=== PATIENT | female | born 1945 | race Caucasian/White ===

== ENCOUNTER 2018-04-03 08:21 | Day surgery (SDC) | payer MEDICARE, OTHER ==
[~2018-04-03] VITALS: Ht 170.2 cm; Wt 76.0 kg
[2018-04-03] VITALS (13 sets, daily range): BP systolic 118–164; BP diastolic 60–94
[2018-04-03 09:18] LABS: BASOPHILS % (AUTO) 0.1 % (0-1); EOSINOPHILS # (AUTO) 1.4 X10'3 (0-0.9); EOSINOPHILS % (AUTO) 17.6 % (0-6); HEMOGLOBIN 11.8 g/dl (12.0-16.0); LYMPHOCYTES # (AUTO) 2.1 X10'3 (1.1-4.8); LYMPHOCYTES % (AUTO) 26.1 % (21-51); MEAN CORPUSCULAR HEMOGLOBIN 27.6 PG (27.0-31.0); MEAN CORPUSCULAR HGB CONC 33.7 % (33.0-36.5); MEAN CORPUSCULAR VOLUME 82.1 FL (78-98); MEAN PLATELET VOLUME 8.8 FL (7.4-10.4); MONOCYTES # (AUTO) 0.5 X10'3 (0-0.9); MONOCYTES % (AUTO) 6.5 % (2-12); NEUTROPHILS # (AUTO) 4.1 X10'3 (1.8-7.7); NEUTROPHILS % (AUTO) 49.7 % (42-75); PLATELET COUNT 222 X10'3 (140-440); RED BLOOD COUNT 4.26 X10'6 (4.20-5.60); RED CELL DISTRIBUTION WIDTH 14.8 % (11.5-14.5); WHITE BLOOD COUNT 8.2 X10'3 (4.5-11.0)
[2018-04-03 09:26] LABS: ALBUMIN 3.7 G/DL (3.4-5.0); ANION GAP 11 (8-16); BLOOD UREA NITROGEN 22 MG/DL (7-18); BUN/CREATININE RATIO 20.2 (6.6-38.0); CALCIUM 9.6 MG/DL (8.5-10.1); CHLORIDE 104 MMOL/L (99-107); CREATININE 1.09 MG/DL (0.40-0.90); GLUCOSE 122 MG/DL (70-104); POTASSIUM 3.8 MMOL/L (3.5-5.1); SODIUM 142 MMOL/L (135-145); TOTAL CARBON DIOXIDE 26.7 MMOL/L (24-32); eGFR 49 ML/MIN
[2018-04-03 09:34] LABS: PROTHROMBIN TIME 10.2 SECONDS (9.0-12.0)
[2018-04-03] MEDS ORDERED: METF-436 PO (09:37)
[2018-04-03] MEDS ORDERED: HYDR25TA4 PO (09:37)
[2018-04-03] MEDS ORDERED: DIPH25CA83 PO (09:37)
[2018-04-03] MEDS ORDERED: ASPI-611 PO (09:37)
[2018-04-03] MEDS ORDERED: CYAN50006 INJ (09:37)
[2018-04-03] MEDS ORDERED: AMLO5TAB4 PO (09:37)
[2018-04-03] MEDS ORDERED: INSULIN INJ ×2 (09:37)
[2018-04-03] MEDS ORDERED: BENA40TA8 PO (09:37)
[2018-04-03] MEDS ORDERED: PRAV20TA4 PO (09:37)
[2018-04-03] MEDS ORDERED: LEVO137T24 PO (09:37)
[2018-04-03] MEDS ORDERED: nitroGLYCERIN 0.4mg SUBLingual tab SL PRN (10:05)
[2018-04-03] MEDS ORDERED: LORazepam 0.5 MG tablet PO PRN (10:05)
[2018-04-03] MEDS ORDERED: glucagon, human recombinant 1mg kit SUBCUT PRN (10:05)
[2018-04-03] MEDS ORDERED: normal saline 1000ml 1,000 ML IV SCH (10:05)
[2018-04-03] MEDS ORDERED: MESSAGE TO PHARMACY PO ONE (10:05)
[2018-04-03] MEDS ORDERED: diphenhydrAMINE 25mg capsule PO PRN (10:05)
[2018-04-03] MEDS ORDERED: dextrose 50%-water 50ml dispensing syringe IV PRN ×2 (10:05)
[2018-04-03] MEDS ORDERED: dextrose ORAL solution 15 GM/59 ML bottle PO PRN ×2 (10:05)
[2018-04-03] MEDS ORDERED: insulin Lispro (HumaLOG) vial - multi-dose SQ SCH (10:05)
[2018-04-03] MEDS ORDERED: LIDOcaine 1% w/EPI 1:100,000 30ml vial (MDV) ONE (11:02)
[2018-04-03] MEDS ORDERED: heparin 1,000 UNITS/NS 500ml 500 ML ONE ×2 (11:02→11:03)
[2018-04-03] MEDS ORDERED: iohexol 350 MG/ML 50ML vial IV ONE ×2 (11:02→11:52)
[2018-04-03] MEDS ORDERED: iohexol 350MG/ML 100ml bottle IV ONE (11:02)
[2018-04-03] MEDS ORDERED: midazolam 2 mg/2 ml injection ONE (11:03)
[2018-04-03] MEDS ORDERED: fentaNYL/PF 50MCG/1 ML 2ML syringe ONE (11:03)
[2018-04-03 11:41] LABS: HEMOGLOBIN A1C 7.8 % (4.5-6.2)
[2018-04-03] MEDS ORDERED: insulin glargine (Lantus) pen - multi-dose SQ SCH (21:00)
== END 2018-04-03 18:15 | disposition home or self-care (01) ==
LOC: SSTAY O 08:21
PROVIDERS: ATTEND Internal Medicine Cardiovascular Disease
DX: I25.10 Atherosclerotic heart disease of native coronary artery without angina pectoris (principal); I10 Essential (primary) hypertension; I08.2 Rheumatic disorders of both aortic and tricuspid valves; E11.9 Type 2 diabetes mellitus without complications; E03.9 Hypothyroidism, unspecified; N81.4 Uterovaginal prolapse, unspecified; E78.5 Hyperlipidemia, unspecified; I65.02 Occlusion and stenosis of left vertebral artery; I25.2 Old myocardial infarction; I70.8 Atherosclerosis of other arteries; Z88.2 Allergy status to sulfonamides; Z79.4 Long term (current) use of insulin; Z90.710 Acquired absence of both cervix and uterus; Z87.442 Personal history of urinary calculi; Z98.890 Other specified postprocedural states; Z79.82 Long term (current) use of aspirin; Z79.899 Other long term (current) drug therapy; Z87.891 Personal history of nicotine dependence
CPT/HCPCS: 36415; 71046; 80048; 82948; 83036; 85025; 85610; 93458; 93567; 99152; 99153; A6257; C1760; C1769; J1644; J2250; J3010; J3490; J7030; Q0163; Q9967; A4620; J1815

== ENCOUNTER 2018-05-09 05:22 | Inpatient (IN) | payer MEDICARE, OTHER ==
[2018-05-06 12:40] LABS: ABG BASE EXCESS 2.3 mmol/L (-2.0-3.0); ABG HCO3 26.5 mmol/L (22.0-26.0); ABG OXYGEN SATURATION 97.1 % (95-98); ABG PCO2 (T) 39.8 mmHg (32.0-45.0); ABG PH (T) 7.442 (7.350-7.450); ABG PO2 (T) 95.4 mmHg (83-108); ALLEN'S TEST Positive; FCOHb 0.2 % (0.5-1.5); FMetHb 0.2 % (0.3-1.12); FO2Hb 96.7 % (94-100); TOTAL HEMOGLOBIN 12.8 G/dl (12.0-16.0)
[2018-05-06 14:26] LABS: CLARITY,URINE SLIGHTLY CLOUDY (Clear); COLOR,URINE YELLOW (Yellow); GLUCOSE, URINE NEGATIVE (Neg); KETONES,URINE NEGATIVE (Neg); LEUKOCYTE ESTERASE ,URINE SMALL (Neg); NITRITES, URINE NEGATIVE (Neg); OCCULT BLOOD,URINE TRACE-INTACT (Neg); PROTEIN,URINE NEGATIVE (Neg); UROBILINOGEN,URINE 0.2 E.U/dL (0.2-1.0)
[2018-05-06 14:27] LABS: UA COLLECTION TYPE CLN CATCH MIDSTREAM
[2018-05-06 15:28] LABS: BACTERIA,URINE FEW /HPF (Neg); RBC,URINE 0-2 /HPF (0-2)
[2018-05-06 15:29] LABS: HYALINE CASTS 0-3 /LPF (NEGATIVE); SQUAMOUS EPITHELIAL CELL,UR FEW /LPF (FEW); WBC CLUMPS,URINE MODERATE /HPF (NEGATIVE)
[2018-05-06 15:51] LABS: BASOPHILS % (AUTO) 0.4 % (0-1); EOSINOPHILS # (AUTO) 0.3 X10'3 (0-0.9); EOSINOPHILS % (AUTO) 3.8 % (0-6); LYMPHOCYTES % (AUTO) 26.4 % (21-51); MEAN CORPUSCULAR HEMOGLOBIN 28.2 PG (27.0-31.0); MEAN CORPUSCULAR HGB CONC 33.6 % (33.0-36.5); MEAN CORPUSCULAR VOLUME 83.7 FL (78-98); MEAN PLATELET VOLUME 9.1 FL (7.4-10.4); MONOCYTES # (AUTO) 0.5 X10'3 (0-0.9); NEUTROPHILS # (AUTO) 4.8 X10'3 (1.8-7.7); NEUTROPHILS % (AUTO) 63.4 % (42-75); PRE OP HEMOGLOBIN 12.8 g/dL (12.0-16.0); PRE OP PLATELET COUNT 254 X10'3 (140-440); RED BLOOD COUNT 4.53 X10'6 (4.20-5.60)
[2018-05-06 16:02] LABS: PRE OP PROTIME 9.9 SECONDS (9.0-12.0)
[2018-05-06 16:15] LABS: ALBUMIN 4.1 G/DL (3.4-5.0); ALKALINE PHOSPHATASE 93 IU/L (46-116); BLOOD UREA NITROGEN 18 MG/DL (7-18); BUN/CREATININE RATIO 15.1 (6.6-38.0); CHLORIDE 102 MMOL/L (99-107); CREATININE 1.19 MG/DL (0.40-0.90); PRE OP ALT 21 U/L (30-65); PRE OP ANION GAP 11 (8-16); PRE OP AST 15 U/L (10-37); PRE OP BILIRUB, TOTAL 0.3 MG/DL (0.0-1.0); PRE OP GLUCOSE 119 MG/DL (70-104); PRE OP POTASSIUM 3.8 MMOL/L (3.4-5.1); PRE OP SODIUM 141 MMOL/L (135-145); TOTAL CARBON DIOXIDE 27.8 MMOL/L (24-32); TOTAL PROTEIN 8.2 G/DL (6.4-8.2); eGFR 44 ML/MIN
[2018-05-06 16:25] LABS: HEMOGLOBIN A1C 7.3 % (4.5-6.2)
[2018-05-09] VITALS (18 sets, daily range): BP systolic 101–157; BP diastolic 40–85
[~2018-05-09] VITALS: Ht 170.2 cm; Wt 75.0 kg
[~2018-05-09 05:22] MED LIST: AMLO5TAB4 PO; ASPI-611 PO; BENA40TA8 PO; CYAN10006 IM; DIPH25CA83 PO; HUM10VIA SUBCUT; HYDR25TA4 PO; LEVO137T24 PO; METF-436 PO; PRAV20TA4 PO; ringers solution, lacted 1,000 ML IV SCH
[2018-05-09] MEDS ORDERED: VANCOMYCIN INJ 1000 MG in NORMAL SALINE 250ml IV.SOLN IV ONE (05:30)
[2018-05-09] MEDS ORDERED: famotidine 20mg tablet PO ONE (05:30)
[2018-05-09] MEDS ORDERED: LIDOcaine 1% (10mg/ml) 2ml vial ONE (05:43)
[2018-05-09] MEDS ORDERED: LORazepam 2 mg/ml vial ONE (05:59)
[2018-05-09] MEDS ORDERED: ceFAZolin 2gm in dextrose, iso 100 ML IV ONE (06:00)
[2018-05-09] MEDS ORDERED: mupirocin 2% nasal ointment 1gm UD NS ONE (06:00)
[2018-05-09] MEDS ORDERED: albuterol 2.5 MG/3 ML nebule NEB ONE (06:20)
[2018-05-09] MEDS ORDERED: LORazepam 2 mg/ml vial IV ONE (06:25)
[2018-05-09] MEDS ORDERED: isoflurane 100ml inhalation liquid IH ONE (07:00)
[2018-05-09] MEDS ORDERED: niCARDipine in NS 40mg/200ml (0.2mg/ml) IVPB IV ONE (07:00)
[2018-05-09] MEDS ORDERED: nitroGLYCERIN in D5W 50mg/250ml (Tridil) infusion IV ONE (07:00)
[2018-05-09] MEDS ORDERED: SUFENTANIL CITRATE 50 MCG/ML 2ml ampule IV ONE (07:11)
[2018-05-09] MEDS ORDERED: rocuronium 10mg/ml inj IV ONE (07:23)
[2018-05-09 08:00] LABS: ABG BASE EXCESS 0.2 mmol/L (-2.0-3.0); ABG PCO2 35.6 mmHg (35.0-45.0); ABG PH 7.447 (7.350-7.450); ABG PO2 120.4 mmHg (60.0-100.0); CL (ABG) 105 mmol/L (99-107); FCOHb 0.3 % (0.5-1.5); FMetHb 0.5 % (0.3-1.12); FO2Hb 97.2 % (94-100); GLUCOSE (ABG) 201 mg/dl (70-105); IONIZED CA (ABG) 1.15 mmol/L (1.03-1.32); K (ABG) 3.4 mmol/L (3.3-5.1); NA (ABG) 130 mmol/L (135-145); TOTAL HEMOGLOBIN 10.3 G/dl (12.0-16.0)
[2018-05-09] MEDS ORDERED: albumin (human) 25% 100 ML IV solution IV ONE (08:00)
[2018-05-09] MEDS ORDERED: papaverine 30 mg/ml 2ml inj. ONE (08:00)
[2018-05-09] MEDS ORDERED: phenylephrine 10mg/ml inj. ONE ×2 (08:00→08:24)
[2018-05-09] MEDS ORDERED: LIDOcaine 2% (20 mg/ml) 5ml cardiac syringe ONE (08:00)
[2018-05-09] MEDS ORDERED: aminocaproic acid 250 MG/1 ML inj. ONE (08:00)
[2018-05-09] MEDS ORDERED: potassium Cl 2 mEq/ml inj IV ONE (08:00)
[2018-05-09] MEDS ORDERED: heparin 1,000 units/ml 10ml inj ONE (08:00)
[2018-05-09] MEDS ORDERED: heparin 10,000 units/1 ML INJ ONE (08:00)
[2018-05-09] MEDS ORDERED: calcium chloride 100 MG/1 ML inj IV ONE (08:00)
[2018-05-09] MEDS ORDERED: MAGNESIUM SULFATE 4 MEQ/ML (1gm/2ml) injection ONE (08:00)
[2018-05-09] MEDS ORDERED: sodium bicarbonate (8.4%) 1 mEq/ml syringe ONE (08:00)
[2018-05-09] MEDS ORDERED: heparin 10,000 units/1 ML INJ IR ONE (08:14)
[2018-05-09] MEDS ORDERED: papaverine 30 mg/ml 2ml inj. IA ONE (08:14)
[2018-05-09] MEDS ORDERED: pancuronium br 1mg/ml inj IV ONE (08:24)
[2018-05-09] MEDS ORDERED: propofol inj 20 ML IV ONE (08:24)
[2018-05-09] MEDS ORDERED: LIDOcaine 2% (20mg/ml) 5ml vial ONE (08:24)
[2018-05-09 08:40] LABS: ABG BASE EXCESS -1.1 mmol/L (-2.0-3.0); ABG HCO3 22.9 mmol/L (22.0-26.0); ABG OXYGEN SATURATION 98.5 % (95-98); ABG PCO2 35.3 mmHg (35.0-45.0); ABG PO2 148.5 mmHg (60.0-100.0); CL (ABG) 104 mmol/L (99-107); FCOHb 0.3 % (0.5-1.5); FMetHb 0.5 % (0.3-1.12); FO2Hb 97.7 % (94-100); GLUCOSE (ABG) 180 mg/dl (70-105); IONIZED CA (ABG) 1.16 mmol/L (1.03-1.32); K (ABG) 3.3 mmol/L (3.3-5.1); NA (ABG) 130 mmol/L (135-145)
[2018-05-09 09:10] LABS: ABG HCO3 25.3 mmol/L (22.0-26.0); ABG OXYGEN SATURATION 99.4 % (95-98); ABG PCO2 38.3 mmHg (35.0-45.0); ABG PH 7.437 (7.350-7.450); ABG PO2 398.1 mmHg (60.0-100.0); CL (ABG) 103 mmol/L (99-107); FCOHb 0.5 % (0.5-1.5); FMetHb 0.6 % (0.3-1.12); FO2Hb 98.3 % (94-100); GLUCOSE (ABG) 163 mg/dl (70-105); IONIZED CA (ABG) 1.06 mmol/L (1.03-1.32); K (ABG) 4.3 mmol/L (3.3-5.1); NA (ABG) 129 mmol/L (135-145); TOTAL HEMOGLOBIN 7.8 G/dl (12.0-16.0)
[2018-05-09 09:31] LABS: ABG BASE EXCESS VENOUS 0.4 mmol/L; ABG HCO3 VENOUS 25.1 mmol/L; ABG PCO2 VENOUS 41.1 mmHg; ABG PO2 VENOUS 50.1 mmHg; CL (ABG) 104 mmol/L (99-107); FCOHb VENOUS 0.6 %; FHHb VENOUS 14.5 %; FMetHb VENOUS 0.4 %; FO2Hb VENOUS 84.5 %; GLUCOSE (ABG) 165 mg/dl (70-105); IONIZED CA (ABG) 1.09 mmol/L (1.03-1.32); K (ABG) 4.2 mmol/L (3.3-5.1); NA (ABG) 130 mmol/L (135-145)
[2018-05-09 09:55] LABS: ABG BASE EXCESS 3.1 mmol/L (-2.0-3.0); ABG HCO3 26.9 mmol/L (22.0-26.0); ABG OXYGEN SATURATION 99.4 % (95-98); ABG PCO2 37.4 mmHg (35.0-45.0); ABG PH 7.475 (7.350-7.450); ABG PO2 421.3 mmHg (60.0-100.0); CL (ABG) 103 mmol/L (99-107); FCOHb 0.7 % (0.5-1.5); FMetHb 0.4 % (0.3-1.12); FO2Hb 98.3 % (94-100); GLUCOSE (ABG) 156 mg/dl (70-105); IONIZED CA (ABG) 1.18 mmol/L (1.03-1.32); K (ABG) 4.4 mmol/L (3.3-5.1); NA (ABG) 131 mmol/L (135-145); TOTAL HEMOGLOBIN 7.4 G/dl (12.0-16.0)
[2018-05-09] MEDS ORDERED: ipratropium/albuterol 3ml nebule IH PRN (09:55)
[2018-05-09 10:26] LABS: ABG BASE EXCESS 1.4 mmol/L (-2.0-3.0); ABG HCO3 24.8 mmol/L (22.0-26.0); ABG OXYGEN SATURATION 99.2 % (95-98); ABG PH 7.481 (7.350-7.450); ABG PO2 243.1 mmHg (60.0-100.0); CL (ABG) 104 mmol/L (99-107); FCOHb 0.6 % (0.5-1.5); FMetHb 0.3 % (0.3-1.12); FO2Hb 98.3 % (94-100); GLUCOSE (ABG) 142 mg/dl (70-105); IONIZED CA (ABG) 1.24 mmol/L (1.03-1.32); K (ABG) 3.8 mmol/L (3.3-5.1); NA (ABG) 133 mmol/L (135-145); TOTAL HEMOGLOBIN 7.9 G/dl (12.0-16.0)
[2018-05-09] MEDS ORDERED: DOPamine 400mg/D5W 250ml 250 ML IV PRN (10:53)
[2018-05-09] MEDS ORDERED: nitroGLYCERIN-Tridil 50MG/D5W 250 ML IV PRN (10:53)
[2018-05-09] MEDS ORDERED: niCARDipine/sod cl 20mg/200ml 200 ML IV PRN (10:53)
[2018-05-09] MEDS ORDERED: magnesium hydroxide 30ml (MOM) UD suspension PO PRN (10:55)
[2018-05-09] MEDS ORDERED: normal saline 250ml IV soln 250 ML IV PRN (10:55)
[2018-05-09] MEDS ORDERED: dextrose 50%-water 50ml dispensing syringe IV PRN (10:55)
[2018-05-09] MEDS ORDERED: magnesium 1gm/100ml D5W IVPB 100 ML IV PRN (10:55)
[2018-05-09] MEDS ORDERED: potassium Cl 20mEq/100mL bag 100 ML IV PRN ×2 (10:55)
[2018-05-09] MEDS ORDERED: sodium phosphate inj. 30 MMOL in dextrose 5%-water 250 ML IV PRN (10:55)
[2018-05-09] MEDS ORDERED: insulin regular, human inj. 100 UNITS in normal saline 100ml IV soln 100 ML IV SCH ×2 (10:55)
[2018-05-09] MEDS ORDERED: sodium phosphate inj. 15 MMOL in dextrose 5%-water 150 ML IV PRN (10:55)
[2018-05-09] MEDS ORDERED: morphine 4 MG/ML inj SYRINge IV PRN (10:55)
[2018-05-09] MEDS ORDERED: ondansetron/PF 4mg/2ml inj IV PRN (10:55)
[2018-05-09] MEDS ORDERED: magnesium 4gm in 100ml NS 100 ML IV PRN (10:55)
[2018-05-09] MEDS ORDERED: acetaminophen 325mg tablet PO PRN (10:55)
[2018-05-09] MEDS ORDERED: Neutra Phos packet PO PRN (10:55)
[2018-05-09] MEDS ORDERED: metoclopramide 5 mg/ml inj IV PRN (10:55)
[2018-05-09 11:20] LABS: ABG BASE EXCESS 0.5 mmol/L (-2.0-3.0); ABG HCO3 24.1 mmol/L (22.0-26.0); ABG OXYGEN SATURATION 97.4 % (95-98); ABG PCO2 (T) 33.5 mmHg (32.0-45.0); ABG PH (T) 7.471 (7.350-7.450); ABG PO2 (T) 101.6 mmHg (83-108); FCOHb 0.3 % (0.5-1.5); FMetHb 0.3 % (0.3-1.12); FO2Hb 96.8 % (94-100); MINUTE VOLUME 7 L/min; PATIENT TEMPERATURE 35.9; PEEP 5 cm H2O; RESPIRATORY RATE 12 b/min; RESPIRATORY RATE (OBSERVED) 12 b/min; TIDAL VOLUME 600 mL; TOTAL HEMOGLOBIN 10.1 G/dl (12.0-16.0)
[2018-05-09 11:34] LABS: BASOPHILS % (AUTO) 0 % (0-1); EOSINOPHILS # (AUTO) 0.1 X10'3 (0-0.9); HEMATOCRIT 27.2 % (35.0-45.0); HEMOGLOBIN 9.4 g/dl (12.0-16.0); LYMPHOCYTES % (AUTO) 7.9 % (21-51); MEAN CORPUSCULAR HEMOGLOBIN 28.2 PG (27.0-31.0); MEAN CORPUSCULAR HGB CONC 34.5 % (33.0-36.5); MEAN CORPUSCULAR VOLUME 81.7 FL (78-98); MEAN PLATELET VOLUME 8.6 FL (7.4-10.4); MONOCYTES # (AUTO) 0.5 X10'3 (0-0.9); NEUTROPHILS % (AUTO) 87.1 % (42-75); PLATELET COUNT 171 X10'3 (140-440); RED BLOOD COUNT 3.33 X10'6 (4.20-5.60); WHITE BLOOD COUNT 12.7 X10'3 (4.5-11.0)
[2018-05-09] MEDS: albumin (Human) 5% 250ml 250 ML IV PRN ×3 (11:43→14:24)
[2018-05-09 11:45] LABS: INR 1.1 INR; PARTIAL THROMBOPLASTIN TIME 26 SECONDS (22-32); PROTHROMBIN TIME 11.3 SECONDS (9.0-12.0)
[2018-05-09 11:49] LABS: ALANINE AMINOTRANSFERASE 18 U/L (12-78); ALBUMIN 2.8 G/DL (3.4-5.0); ALBUMIN/GLOBULIN RATIO 1.1 (1.1-1.5); ALKALINE PHOSPHATASE 58 IU/L (46-116); ANION GAP 10 (8-16); ASPARTATE AMINO TRANSFERASE 21 U/L (10-37); BILIRUBIN,TOTAL 0.4 MG/DL (0.1-1.0); BLOOD UREA NITROGEN 37 MG/DL (7-18); BUN/CREATININE RATIO 28.7 (6.6-38.0); CHLORIDE 108 MMOL/L (99-107); CREATININE 1.29 MG/DL (0.40-0.90); GLUCOSE 122 MG/DL (70-104); PHOSPHORUS 1.8 MG/DL (2.3-4.5); POTASSIUM 3.6 MMOL/L (3.5-5.1); SODIUM 143 MMOL/L (135-145); TOTAL PROTEIN 5.4 G/DL (6.4-8.2); eGFR 40 ML/MIN
[2018-05-09] MEDS: sodium chloride 0.45% 1,000 ML IV SCH (12:18)
[2018-05-09] MEDS: insulin regular, human 100 UNIT in normal saline 100ml IV soln 99 ML IV SCH ×8 (12:18→21:23)
[2018-05-09] MEDS: insulin Lispro (HumaLOG) vial - multi-dose SQ SCH ×2 (12:19→17:45)
[2018-05-09] MEDS: potassium Cl 20mEq/100mL bag 100 ML IV PRN ×3 (12:28→18:07)
[2018-05-09] MEDS: ceFAZolin 1GM/D5W- ADD-VANTAGE 50 ML IV SCH (16:08)
[2018-05-09 17:32] LABS: BASOPHILS % (AUTO) 0 % (0-1); EOSINOPHILS % (AUTO) 0 % (0-6); HEMATOCRIT 24.4 % (35.0-45.0); HEMOGLOBIN 8.3 g/dl (12.0-16.0); LYMPHOCYTES # (AUTO) 0.4 X10'3 (1.1-4.8); LYMPHOCYTES % (AUTO) 4.3 % (21-51); MEAN CORPUSCULAR HEMOGLOBIN 28.3 PG (27.0-31.0); MEAN CORPUSCULAR HGB CONC 33.9 % (33.0-36.5); MEAN CORPUSCULAR VOLUME 83.5 FL (78-98); MEAN PLATELET VOLUME 9.1 FL (7.4-10.4); MONOCYTES # (AUTO) 0.2 X10'3 (0-0.9); MONOCYTES % (AUTO) 2.4 % (2-12); NEUTROPHILS # (AUTO) 9.2 X10'3 (1.8-7.7); NEUTROPHILS % (AUTO) 93.3 % (42-75); PLATELET COUNT 137 X10'3 (140-440); RED BLOOD COUNT 2.92 X10'6 (4.20-5.60); RED CELL DISTRIBUTION WIDTH 14.3 % (11.5-14.5); WHITE BLOOD COUNT 9.9 X10'3 (4.5-11.0)
[2018-05-09 17:44] LABS: ALBUMIN 3.3 G/DL (3.4-5.0); ANION GAP 11 (8-16); BLOOD UREA NITROGEN 35 MG/DL (7-18); BUN/CREATININE RATIO 24.8 (6.6-38.0); CALCIUM 8.9 MG/DL (8.5-10.1); CHLORIDE 111 MMOL/L (99-107); CREATININE 1.41 MG/DL (0.40-0.90); GLUCOSE 186 MG/DL (70-104); POTASSIUM 4.2 MMOL/L (3.5-5.1); SODIUM 145 MMOL/L (135-145); TOTAL CARBON DIOXIDE 23.4 MMOL/L (24-32); eGFR 36 ML/MIN
[2018-05-09 18:11] LABS: MAGNESIUM 2.5 MG/DL (1.5-2.4); PHOSPHORUS 3.1 MG/DL (2.3-4.5)
[2018-05-09] MEDS: morphine 4 MG/ML inj SYRINge IV PRN ×2 (18:35→19:42)
[2018-05-09] MEDS: docusate sod 100mg capsule PO SCH (19:42)
[2018-05-09] MEDS: vancomycin/NS 1 GM ADD-VANTAGE 250 ML IV SCH (19:42)
[2018-05-09] MEDS: mupirocin 2% nasal ointment 1gm UD NS SCH (19:42)
[2018-05-09 20:36] LABS: BASOPHILS % (AUTO) 0.1 % (0-1); EOSINOPHILS % (AUTO) 0 % (0-6); HEMATOCRIT 24.9 % (35.0-45.0); HEMOGLOBIN 8.4 g/dl (12.0-16.0); LYMPHOCYTES # (AUTO) 0.5 X10'3 (1.1-4.8); LYMPHOCYTES % (AUTO) 5.5 % (21-51); MEAN CORPUSCULAR HEMOGLOBIN 28.3 PG (27.0-31.0); MEAN CORPUSCULAR HGB CONC 33.8 % (33.0-36.5); MEAN CORPUSCULAR VOLUME 83.5 FL (78-98); MEAN PLATELET VOLUME 9.3 FL (7.4-10.4); MONOCYTES # (AUTO) 0.2 X10'3 (0-0.9); MONOCYTES % (AUTO) 2.4 % (2-12); NEUTROPHILS # (AUTO) 8.3 X10'3 (1.8-7.7); PLATELET COUNT 138 X10'3 (140-440); RED BLOOD COUNT 2.98 X10'6 (4.20-5.60); RED CELL DISTRIBUTION WIDTH 14.2 % (11.5-14.5); WHITE BLOOD COUNT 9.1 X10'3 (4.5-11.0)
[2018-05-09 20:53] LABS: MAGNESIUM 2.4 MG/DL (1.5-2.4); POTASSIUM 4.3 MMOL/L (3.5-5.1)
[2018-05-10] VITALS (24 sets, daily range): BP systolic 119–155; BP diastolic 45–72
[2018-05-10] MEDS: morphine 4 MG/ML inj SYRINge IV PRN ×2 (00:03→05:44)
[2018-05-10] MEDS: ceFAZolin 1GM/D5W- ADD-VANTAGE 50 ML IV SCH ×3 (00:03→16:46)
[2018-05-10 02:46] LABS: ABG BASE EXCESS -5.5 mmol/L (-2.0-3.0); ABG HCO3 17.7 mmol/L (22.0-26.0); ABG OXYGEN SATURATION 96.7 % (95-98); ABG PCO2 (T) 26.2 mmHg (32.0-45.0); ABG PH (T) 7.445 (7.350-7.450); ABG PO2 (T) 90.5 mmHg (83-108); FCOHb 0.2 % (0.5-1.5); FMetHb 0.2 % (0.3-1.12); FO2Hb 96.3 % (94-100); MINUTE VOLUME 9 L/min; PATIENT TEMPERATURE 36.2; PEEP 5 cm H2O; RESPIRATORY RATE (OBSERVED) 18 b/min; TOTAL HEMOGLOBIN 9.5 G/dl (12.0-16.0)
[2018-05-10] MEDS: HYDROcodone/acetaminophen 10/325mg tab PO PRN ×4 (02:58→22:22)
[2018-05-10 03:39] LABS: BASOPHILS % (AUTO) 0.1 % (0-1); EOSINOPHILS % (AUTO) 0 % (0-6); HEMATOCRIT 27.8 % (35.0-45.0); HEMOGLOBIN 9.4 g/dl (12.0-16.0); LYMPHOCYTES # (AUTO) 0.4 X10'3 (1.1-4.8); LYMPHOCYTES % (AUTO) 2.9 % (21-51); MEAN CORPUSCULAR HEMOGLOBIN 30.1 PG (27.0-31.0); MEAN CORPUSCULAR HGB CONC 33.7 % (33.0-36.5); MEAN CORPUSCULAR VOLUME 89.1 FL (78-98); MEAN PLATELET VOLUME 8.2 FL (7.4-10.4); MONOCYTES # (AUTO) 0.8 X10'3 (0-0.9); MONOCYTES % (AUTO) 6.8 % (2-12); NEUTROPHILS # (AUTO) 10.9 X10'3 (1.8-7.7); NEUTROPHILS % (AUTO) 90.2 % (42-75); PLATELET COUNT 203 X10'3 (140-440); RED BLOOD COUNT 3.12 X10'6 (4.20-5.60); RED CELL DISTRIBUTION WIDTH 14.4 % (11.5-14.5); WHITE BLOOD COUNT 12.1 X10'3 (4.5-11.0)
[2018-05-10 03:40] LABS: ALANINE AMINOTRANSFERASE 21 U/L (12-78); ALBUMIN 1.6 G/DL (3.4-5.0); ALBUMIN/GLOBULIN RATIO 0.4 (1.1-1.5); ALKALINE PHOSPHATASE 88 IU/L (46-116); ANION GAP 7 (8-16); ASPARTATE AMINO TRANSFERASE 25 U/L (10-37); BILIRUBIN,TOTAL 0.3 MG/DL (0.1-1.0); BLOOD UREA NITROGEN 45 MG/DL (7-18); BUN/CREATININE RATIO 13.1 (6.6-38.0); CALCIUM 6.6 MG/DL (8.5-10.1); CHLORIDE 101 MMOL/L (99-107); CREATININE 3.43 MG/DL (0.40-0.90); GLUCOSE 127 MG/DL (70-104); MAGNESIUM 3.7 MG/DL (1.5-2.4); PHOSPHORUS 5.2 MG/DL (2.3-4.5); SODIUM 139 MMOL/L (135-145); TOTAL CARBON DIOXIDE 30.6 MMOL/L (24-32); TOTAL PROTEIN 5.5 G/DL (6.4-8.2); eGFR 13 ML/MIN
[2018-05-10 03:53] LABS: POTASSIUM 3.9 MMOL/L (3.5-5.1)
[2018-05-10] MEDS: potassium Cl 20mEq/100mL bag 100 ML IV PRN ×2 (04:32→05:29)
[2018-05-10 04:52] LABS: PARTIAL THROMBOPLASTIN TIME 24 SECONDS (22-32); PROTHROMBIN TIME 10.3 SECONDS (9.0-12.0)
[2018-05-10] MEDS: vancomycin/NS 1 GM ADD-VANTAGE 250 ML IV SCH ×2 (07:25→19:40)
[2018-05-10] MEDS: levoTHYROXINE 25mcg tablet PO SCH (07:26)
[2018-05-10] MEDS: pantoprazole 40mg Tablet.DR PO SCH (07:26)
[2018-05-10] MEDS: levoTHYROXINE 112mcg tablet PO SCH (07:26)
[2018-05-10] MEDS: atorvastatin 10mg tablet PO SCH (07:26)
[2018-05-10] MEDS: docusate sod 100mg capsule PO SCH ×2 (07:26→19:41)
[2018-05-10] MEDS: mupirocin 2% nasal ointment 1gm UD NS SCH ×2 (07:27→22:24)
[2018-05-10] MEDS: metoprolol tartrate 12.5mg (1/2 tablet) PO SCH ×2 (07:35→19:44)
[2018-05-10] MEDS ORDERED: aspirin 325mg tablet, delayed-release (Ecotrin) PO SCH (08:00)
[2018-05-10] MEDS: insulin regular, human 100 UNIT in normal saline 100ml IV soln 99 ML IV SCH ×2 (08:22)
[2018-05-10] MEDS ORDERED: lisinopril 10 MG tablet PO SCH (08:40)
[2018-05-10] MEDS: amLODIPine 5mg tablet PO SCH (09:15)
[2018-05-10] MEDS ORDERED: glucagon, human recombinant 1mg kit SUBCUT PRN (12:05)
[2018-05-10] MEDS ORDERED: MESSAGE TO PHARMACY PO ONE (12:05)
[2018-05-10] MEDS ORDERED: dextrose 50%-water 50ml dispensing syringe IV PRN ×2 (12:05)
[2018-05-10] MEDS ORDERED: dextrose ORAL solution 15 GM/59 ML bottle PO PRN ×2 (12:05)
[2018-05-10] MEDS: insulin Lispro (HumaLOG) vial - multi-dose SQ SCH ×3 (13:02→22:20)
[2018-05-10] MEDS: sodium chloride 0.45% 1,000 ML IV SCH (17:27)
[2018-05-10] MEDS: lactobacillus rhamnosus 10,000 MMU CELLS/CAPSULE PO SCH (19:41)
[2018-05-10] MEDS ORDERED: insulin glargine (Lantus) pen - multi-dose SQ SCH (21:00)
[2018-05-11] VITALS (17 sets, daily range): BP systolic 124–160; BP diastolic 61–78
[2018-05-11] MEDS: ceFAZolin 1GM/D5W- ADD-VANTAGE 50 ML IV SCH
[2018-05-11] MEDS: HYDROcodone/acetaminophen 10/325mg tab PO PRN ×5 (00:07→20:36)
[2018-05-11 03:40] LABS: BASOPHILS % (AUTO) 0.2 % (0-1); EOSINOPHILS # (AUTO) 0.1 X10'3 (0-0.9); EOSINOPHILS % (AUTO) 0.9 % (0-6); HEMATOCRIT 28.2 % (35.0-45.0); HEMOGLOBIN 9.4 g/dl (12.0-16.0); LYMPHOCYTES # (AUTO) 1.4 X10'3 (1.1-4.8); LYMPHOCYTES % (AUTO) 9.4 % (21-51); MEAN CORPUSCULAR HEMOGLOBIN 28.3 PG (27.0-31.0); MEAN CORPUSCULAR HGB CONC 33.4 % (33.0-36.5); MEAN CORPUSCULAR VOLUME 84.8 FL (78-98); MEAN PLATELET VOLUME 10.1 FL (7.4-10.4); MONOCYTES # (AUTO) 1.1 X10'3 (0-0.9); MONOCYTES % (AUTO) 7.1 % (2-12); NEUTROPHILS # (AUTO) 12.4 X10'3 (1.8-7.7); NEUTROPHILS % (AUTO) 82.4 % (42-75); PLATELET COUNT 175 X10'3 (140-440); RED BLOOD COUNT 3.32 X10'6 (4.20-5.60); RED CELL DISTRIBUTION WIDTH 14.6 % (11.5-14.5); WHITE BLOOD COUNT 15.1 X10'3 (4.5-11.0)
[2018-05-11 03:44] LABS: ALBUMIN 3.3 G/DL (3.4-5.0); ANION GAP 5 (8-16); BLOOD UREA NITROGEN 32 MG/DL (7-18); BUN/CREATININE RATIO 23.7 (6.6-38.0); CALCIUM 8.9 MG/DL (8.5-10.1); CHLORIDE 109 MMOL/L (99-107); CREATININE 1.35 MG/DL (0.40-0.90); GLUCOSE 219 MG/DL (70-104); PHOSPHORUS 3.7 MG/DL (2.3-4.5); POTASSIUM 4.9 MMOL/L (3.5-5.1); SODIUM 140 MMOL/L (135-145); TOTAL CARBON DIOXIDE 25.8 MMOL/L (24-32); eGFR 38 ML/MIN
[2018-05-11] MEDS: mupirocin 2% nasal ointment 1gm UD NS SCH (07:19)
[2018-05-11] MEDS: levoTHYROXINE 112mcg tablet PO SCH (07:19)
[2018-05-11] MEDS: levoTHYROXINE 25mcg tablet PO SCH (07:20)
[2018-05-11] MEDS: docusate sod 100mg capsule PO SCH ×2 (07:20→18:46)
[2018-05-11] MEDS: aspirin 81mg tablet.DR PO SCH (07:20)
[2018-05-11] MEDS: pantoprazole 40mg Tablet.DR PO SCH (07:20)
[2018-05-11] MEDS: lactobacillus rhamnosus 10,000 MMU CELLS/CAPSULE PO SCH ×2 (07:20→18:46)
[2018-05-11] MEDS: atorvastatin 10mg tablet PO SCH (07:20)
[2018-05-11] MEDS: metoprolol tartrate 12.5mg (1/2 tablet) PO SCH (07:24)
[2018-05-11] MEDS ORDERED: amLODIPine 5mg tablet PO SCH (08:00)
[2018-05-11] MEDS: amLODIPine 5mg tablet PO SCH ×2 (09:15→19:16)
[2018-05-11] MEDS: insulin Lispro (HumaLOG) vial - multi-dose SQ SCH ×2 (09:38→13:45)
[2018-05-11] MEDS ORDERED: diphenhydrAMINE 25mg capsule PO PRN (09:55)
[2018-05-11] MEDS ORDERED: potassium Cl 40MEQ/NS 500ml 500 ML IV PRN ×2 (10:00)
[2018-05-11] MEDS ORDERED: magnesium 4gm in 100ml NS 100 ML IV PRN (10:00)
[2018-05-11] MEDS ORDERED: magnesium 1gm/100ml D5W IVPB 50 ML IV PRN (10:00)
[2018-05-11] MEDS ORDERED: magnesium Cl slow-release 64mg tablet PO PRN (10:00)
[2018-05-11] MEDS ORDERED: potassium Cl 20 mEq SR tablet PO PRN ×2 (10:00)
[2018-05-11] MEDS ORDERED: dextrose ORAL solution 15 GM/59 ML bottle PO PRN ×2 (13:45)
[2018-05-11] MEDS ORDERED: glucagon, human recombinant 1mg kit SUBCUT PRN (13:45)
[2018-05-11] MEDS ORDERED: dextrose 50%-water 50ml dispensing syringe IV PRN ×2 (13:45)
[2018-05-11] MEDS: magnesium Cl slow-release 64mg tablet PO SCH (20:00)
[2018-05-11] MEDS: potassium Cl 20 mEq SR tablet PO SCH (20:00)
[2018-05-11] MEDS: metFORMIN 500mg tablet PO SCH (20:33)
[2018-05-11] MEDS: insulin glargine (Lantus) pen - multi-dose SQ SCH (20:58)
[2018-05-12] MEDS: HYDROcodone/acetaminophen 10/325mg tab PO PRN ×2 (02:26→18:53)
[2018-05-12 05:56] LABS: BASOPHILS % (AUTO) 0.1 % (0-1); EOSINOPHILS # (AUTO) 0.1 X10'3 (0-0.9); EOSINOPHILS % (AUTO) 1.2 % (0-6); HEMATOCRIT 26.8 % (35.0-45.0); HEMOGLOBIN 9.2 g/dl (12.0-16.0); LYMPHOCYTES # (AUTO) 1.5 X10'3 (1.1-4.8); LYMPHOCYTES % (AUTO) 16.7 % (21-51); MEAN CORPUSCULAR HEMOGLOBIN 28.6 PG (27.0-31.0); MEAN CORPUSCULAR HGB CONC 34.3 % (33.0-36.5); MEAN CORPUSCULAR VOLUME 83.3 FL (78-98); MEAN PLATELET VOLUME 9.3 FL (7.4-10.4); MONOCYTES # (AUTO) 0.7 X10'3 (0-0.9); MONOCYTES % (AUTO) 7.6 % (2-12); NEUTROPHILS # (AUTO) 6.6 X10'3 (1.8-7.7); NEUTROPHILS % (AUTO) 74.4 % (42-75); PLATELET COUNT 158 X10'3 (140-440); RED BLOOD COUNT 3.21 X10'6 (4.20-5.60); WHITE BLOOD COUNT 8.9 X10'3 (4.5-11.0)
[2018-05-12 06:00] VITALS: BP 146/69
[2018-05-12 06:15] LABS: ALBUMIN 2.9 G/DL (3.4-5.0); ANION GAP 7 (8-16); BLOOD UREA NITROGEN 24 MG/DL (7-18); BUN/CREATININE RATIO 22.6 (6.6-38.0); CALCIUM 8.6 MG/DL (8.5-10.1); CHLORIDE 107 MMOL/L (99-107); CREATININE 1.06 MG/DL (0.40-0.90); GLUCOSE 197 MG/DL (70-104); MAGNESIUM 1.8 MG/DL (1.5-2.4); POTASSIUM 3.9 MMOL/L (3.5-5.1); SODIUM 141 MMOL/L (135-145); TOTAL CARBON DIOXIDE 27.3 MMOL/L (24-32); eGFR 51 ML/MIN
[2018-05-12] MEDS: metFORMIN 500mg tablet PO SCH ×2 (07:14→18:53)
[2018-05-12] MEDS: aspirin 81mg tablet.DR PO SCH (07:15)
[2018-05-12] MEDS: levoTHYROXINE 25mcg tablet PO SCH (07:15)
[2018-05-12] MEDS: levoTHYROXINE 112mcg tablet PO SCH (07:15)
[2018-05-12] MEDS: potassium Cl 20 mEq SR tablet PO SCH ×2 (07:15→18:53)
[2018-05-12] MEDS: HYDROchlorothiazide 25mg tablet PO SCH (07:15)
[2018-05-12] MEDS: docusate sod 100mg capsule PO SCH ×2 (07:15→18:52)
[2018-05-12] MEDS: atorvastatin 10mg tablet PO SCH (07:16)
[2018-05-12] MEDS: pantoprazole 40mg Tablet.DR PO SCH (07:16)
[2018-05-12] MEDS: magnesium Cl slow-release 64mg tablet PO SCH ×2 (07:16→18:53)
[2018-05-12] MEDS: lactobacillus rhamnosus 10,000 MMU CELLS/CAPSULE PO SCH ×2 (07:16→18:53)
[2018-05-12] MEDS: amLODIPine 5mg tablet PO SCH (07:16)
[2018-05-12] MEDS: K and/or MAG REPLACEMENT MC SCH (07:20)
[2018-05-12] MEDS: insulin Lispro (HumaLOG) vial - multi-dose SQ SCH ×2 (08:50→14:54)
[2018-05-12 11:00] VITALS: BP 150/77
[2018-05-12 15:00] VITALS: BP 165/77
[2018-05-12] MEDS ORDERED: amLODIPine 5mg tablet PO SCH (18:05)
[2018-05-12 19:00] VITALS: BP 138/70
[2018-05-12] MEDS: insulin glargine (Lantus) pen - multi-dose SQ SCH (20:51)
[2018-05-12 23:02] VITALS: BP 131/73
[2018-05-13 03:05] VITALS: BP 140/72
[2018-05-13 05:26] LABS: ACT @ 1.70 U 283 SEC (193-297); ACT @ 2.84 U 402 SEC (260-420); BASELINE ACT 135 SEC (101-148); PATIENT WEIGHT 77.0k KG
[2018-05-13 05:26] LABS: ACTIVATED CLOTTING TIME 120 SEC (101-148)
[2018-05-13 05:30] VITALS: BP 158/80
[2018-05-13 06:31] LABS: BASOPHILS % (AUTO) 0.3 % (0-1); EOSINOPHILS # (AUTO) 0.3 X10'3 (0-0.9); EOSINOPHILS % (AUTO) 4.6 % (0-6); HEMATOCRIT 30.8 % (35.0-45.0); HEMOGLOBIN 10.4 g/dl (12.0-16.0); LYMPHOCYTES # (AUTO) 1.2 X10'3 (1.1-4.8); LYMPHOCYTES % (AUTO) 16.8 % (21-51); MEAN CORPUSCULAR HGB CONC 33.9 % (33.0-36.5); MEAN CORPUSCULAR VOLUME 82.6 FL (78-98); MEAN PLATELET VOLUME 8.9 FL (7.4-10.4); MONOCYTES # (AUTO) 0.6 X10'3 (0-0.9); MONOCYTES % (AUTO) 8.6 % (2-12); NEUTROPHILS # (AUTO) 4.9 X10'3 (1.8-7.7); NEUTROPHILS % (AUTO) 69.7 % (42-75); PLATELET COUNT 195 X10'3 (140-440); RED BLOOD COUNT 3.72 X10'6 (4.20-5.60); WHITE BLOOD COUNT 7.1 X10'3 (4.5-11.0)
[2018-05-13 06:43] LABS: ALBUMIN 3.1 G/DL (3.4-5.0); ANION GAP 8 (8-16); BLOOD UREA NITROGEN 18 MG/DL (7-18); BUN/CREATININE RATIO 18.2 (6.6-38.0); CHLORIDE 105 MMOL/L (99-107); CREATININE 0.99 MG/DL (0.40-0.90); GLUCOSE 183 MG/DL (70-104); MAGNESIUM 1.5 MG/DL (1.5-2.4); POTASSIUM 3.7 MMOL/L (3.5-5.1); SODIUM 141 MMOL/L (135-145); TOTAL CARBON DIOXIDE 28.3 MMOL/L (24-32); eGFR 55 ML/MIN
[2018-05-13] MEDS ORDERED: magnesium citrate 296ml oral solution PO ONE (07:25)
[2018-05-13] MEDS: potassium Cl 20 mEq SR tablet PO SCH ×2 (07:25→19:13)
[2018-05-13] MEDS: lactobacillus rhamnosus 10,000 MMU CELLS/CAPSULE PO SCH ×2 (07:25→19:12)
[2018-05-13] MEDS: docusate sod 100mg capsule PO SCH ×2 (07:25→19:11)
[2018-05-13] MEDS: pantoprazole 40mg Tablet.DR PO SCH (07:26)
[2018-05-13] MEDS: amLODIPine 5mg tablet PO SCH (07:26)
[2018-05-13] MEDS: levoTHYROXINE 25mcg tablet PO SCH (07:26)
[2018-05-13] MEDS: metFORMIN 500mg tablet PO SCH ×2 (07:26→19:13)
[2018-05-13] MEDS: levoTHYROXINE 112mcg tablet PO SCH (07:27)
[2018-05-13] MEDS: atorvastatin 10mg tablet PO SCH (07:27)
[2018-05-13] MEDS: magnesium Cl slow-release 64mg tablet PO SCH ×2 (07:27→19:13)
[2018-05-13] MEDS: HYDROchlorothiazide 25mg tablet PO SCH (07:27)
[2018-05-13] MEDS: aspirin 81mg tablet.DR PO SCH (07:27)
[2018-05-13] MEDS ORDERED: metoprolol tartrate 12.5mg (1/2 tablet) PO SCH (08:00)
[2018-05-13] MEDS: K and/or MAG REPLACEMENT MC SCH (08:00)
[2018-05-13] MEDS: insulin Lispro (HumaLOG) vial - multi-dose SQ SCH ×2 (08:33→13:43)
[2018-05-13 11:00] VITALS: BP 131/71
[2018-05-13 15:00] VITALS: BP 104/59
[2018-05-13 19:00] VITALS: BP 127/72
[2018-05-13] MEDS: metoprolol tartrate 25mg tablet PO SCH (19:13)
[2018-05-13] MEDS: insulin glargine (Lantus) pen - multi-dose SQ SCH (20:51)
[2018-05-13 23:00] VITALS: BP 134/74
[2018-05-14 03:00] VITALS: BP 131/69
[2018-05-14 05:10] LABS: BASOPHILS % (AUTO) 0.4 % (0-1); EOSINOPHILS # (AUTO) 0.7 X10'3 (0-0.9); EOSINOPHILS % (AUTO) 5.9 % (0-6); HEMATOCRIT 34.2 % (35.0-45.0); HEMOGLOBIN 11.5 g/dl (12.0-16.0); LYMPHOCYTES # (AUTO) 2.5 X10'3 (1.1-4.8); LYMPHOCYTES % (AUTO) 21.3 % (21-51); MEAN CORPUSCULAR HEMOGLOBIN 28.2 PG (27.0-31.0); MEAN CORPUSCULAR HGB CONC 33.5 % (33.0-36.5); MEAN CORPUSCULAR VOLUME 84.1 FL (78-98); MEAN PLATELET VOLUME 8.7 FL (7.4-10.4); MONOCYTES # (AUTO) 0.9 X10'3 (0-0.9); MONOCYTES % (AUTO) 7.5 % (2-12); NEUTROPHILS # (AUTO) 7.6 X10'3 (1.8-7.7); NEUTROPHILS % (AUTO) 64.9 % (42-75); PLATELET COUNT 276 X10'3 (140-440); RED BLOOD COUNT 4.07 X10'6 (4.20-5.60); RED CELL DISTRIBUTION WIDTH 14.2 % (11.5-14.5); WHITE BLOOD COUNT 11.7 X10'3 (4.5-11.0)
[2018-05-14 05:35] LABS: ALBUMIN 3.4 G/DL (3.4-5.0); ANION GAP 10 (8-16); BLOOD UREA NITROGEN 21 MG/DL (7-18); BUN/CREATININE RATIO 18.4 (6.6-38.0); CALCIUM 9.5 MG/DL (8.5-10.1); CHLORIDE 103 MMOL/L (99-107); CREATININE 1.14 MG/DL (0.40-0.90); GLUCOSE 177 MG/DL (70-104); MAGNESIUM 1.9 MG/DL (1.5-2.4); POTASSIUM 4.3 MMOL/L (3.5-5.1); SODIUM 139 MMOL/L (135-145); TOTAL CARBON DIOXIDE 26.5 MMOL/L (24-32); eGFR 47 ML/MIN
[2018-05-14 06:00] VITALS: BP 166/79
[2018-05-14] MEDS: amLODIPine 5mg tablet PO SCH (07:14)
[2018-05-14] MEDS: pantoprazole 40mg Tablet.DR PO SCH (07:14)
[2018-05-14] MEDS: HYDROchlorothiazide 25mg tablet PO SCH (07:14)
[2018-05-14] MEDS: magnesium Cl slow-release 64mg tablet PO SCH ×2 (07:14→19:03)
[2018-05-14] MEDS: metFORMIN 500mg tablet PO SCH ×2 (07:14→19:02)
[2018-05-14] MEDS: lactobacillus rhamnosus 10,000 MMU CELLS/CAPSULE PO SCH ×2 (07:15→19:03)
[2018-05-14] MEDS: aspirin 81mg tablet.DR PO SCH (07:15)
[2018-05-14] MEDS: levoTHYROXINE 112mcg tablet PO SCH (07:15)
[2018-05-14] MEDS: levoTHYROXINE 25mcg tablet PO SCH (07:15)
[2018-05-14] MEDS: atorvastatin 10mg tablet PO SCH (07:15)
[2018-05-14] MEDS: metoprolol tartrate 25mg tablet PO SCH ×2 (07:15→19:02)
[2018-05-14] MEDS: potassium Cl 20 mEq SR tablet PO SCH ×2 (07:17→20:00)
[2018-05-14] MEDS: K and/or MAG REPLACEMENT MC SCH (07:17)
[2018-05-14] MEDS: docusate sod 100mg capsule PO SCH ×2 (07:17→19:02)
[2018-05-14] MEDS: insulin Lispro (HumaLOG) vial - multi-dose SQ SCH ×2 (08:20→19:06)
[2018-05-14] MEDS ORDERED: amiodarone 200mg tablet PO ONE (08:50)
[2018-05-14] MEDS ORDERED: COL100C PO (08:52)
[2018-05-14] MEDS ORDERED: AMIO200T57 PO (08:52)
[2018-05-14] MEDS ORDERED: HYDR-3972 PO (08:52)
[2018-05-14] MEDS ORDERED: METO25TA6 PO (08:52)
[2018-05-14] MEDS: lisinopril 10 MG tablet PO SCH (09:56)
[2018-05-14 11:00] VITALS: BP 119/63
[2018-05-14 15:00] VITALS: BP 125/63
[2018-05-14 19:00] VITALS: BP 130/65
[2018-05-14] MEDS: insulin glargine (Lantus) pen - multi-dose SQ SCH (21:47)
[2018-05-14 23:00] VITALS: BP 120/62
[2018-05-15 03:00] VITALS: BP 119/57
[2018-05-15 06:00] VITALS: BP 133/56
[2018-05-15 06:05] LABS: ALBUMIN 3.4 G/DL (3.4-5.0); ANION GAP 11 (8-16); BLOOD UREA NITROGEN 24 MG/DL (7-18); CALCIUM 9.4 MG/DL (8.5-10.1); CHLORIDE 102 MMOL/L (99-107); CREATININE 1.26 MG/DL (0.40-0.90); GLUCOSE 152 MG/DL (70-104); MAGNESIUM 1.7 MG/DL (1.5-2.4); POTASSIUM 4.2 MMOL/L (3.5-5.1); SODIUM 138 MMOL/L (135-145); TOTAL CARBON DIOXIDE 25.2 MMOL/L (24-32); eGFR 42 ML/MIN
[2018-05-15] MEDS: K and/or MAG REPLACEMENT MC SCH ×2 (06:40→08:00)
[2018-05-15] MEDS: potassium Cl 20 mEq SR tablet PO SCH (06:40)
[2018-05-15] MEDS: atorvastatin 10mg tablet PO SCH (07:52)
[2018-05-15] MEDS: pantoprazole 40mg Tablet.DR PO SCH (07:52)
[2018-05-15] MEDS: levoTHYROXINE 112mcg tablet PO SCH (07:52)
[2018-05-15] MEDS: metoprolol tartrate 25mg tablet PO SCH (07:52)
[2018-05-15] MEDS: magnesium Cl slow-release 64mg tablet PO SCH (07:52)
[2018-05-15] MEDS: aspirin 81mg tablet.DR PO SCH (07:52)
[2018-05-15] MEDS: levoTHYROXINE 25mcg tablet PO SCH (07:52)
[2018-05-15] MEDS: lactobacillus rhamnosus 10,000 MMU CELLS/CAPSULE PO SCH (07:53)
[2018-05-15] MEDS: docusate sod 100mg capsule PO SCH (07:53)
[2018-05-15] MEDS: metFORMIN 500mg tablet PO SCH (07:53)
[2018-05-15] MEDS: HYDROchlorothiazide 25mg tablet PO SCH (07:53)
[2018-05-15] MEDS: lisinopril 10 MG tablet PO SCH (07:54)
[2018-05-15] MEDS: amLODIPine 5mg tablet PO SCH (07:54)
[2018-05-15] MEDS ORDERED: amiodarone 200mg tablet PO SCH (08:00)
[2018-05-15] MEDS: insulin Lispro (HumaLOG) vial - multi-dose SQ SCH (08:00)
[2018-05-15 11:00] VITALS: BP 122/56
[2018-05-20] MEDS ORDERED: cyanocobalamin 1,000 mcg/ml inj IM SCH (10:55)
== END 2018-05-15 17:05 | disposition home health service (06) | DRG 236 ==
LOC: PAS IN 05:22 → EDSTATUS 07:30 → CICU 2S 11:10 → ICU 2S 05-10 21:00 → PCU 3S 05-11 14:05
PROVIDERS: ADMIT Thoracic Surgery (Cardiothoracic Vascular Surgery); ATTEND Physician Assistant Surgical
PROC: 021109W Bypass Coronary Artery, Two Arteries from Aorta with Autologous Venous Tissue, Open Approach (ICD-10-PCS; 2018-05-09)
PROC: 06BP4ZZ Excision of Right Saphenous Vein, Percutaneous Endoscopic Approach (ICD-10-PCS; 2018-05-09)
PROC: B24BZZ4 Ultrasonography of Heart with Aorta, Transesophageal (ICD-10-PCS; 2018-05-09)
PROC: 5A1221Z Performance of Cardiac Output, Continuous (ICD-10-PCS; 2018-05-09)
PROC: 02HV33Z Insertion of Infusion Device into Superior Vena Cava, Percutaneous Approach (ICD-10-PCS; 2018-05-09)
PROC: 02100Z9 Bypass Coronary Artery, One Artery from Left Internal Mammary, Open Approach (ICD-10-PCS; principal; 2018-05-09 07:00)
DX: I25.10 Atherosclerotic heart disease of native coronary artery without angina pectoris (principal); E11.9 Type 2 diabetes mellitus without complications; I10 Essential (primary) hypertension; E78.5 Hyperlipidemia, unspecified; B96.20 Unspecified Escherichia coli [E. coli] as the cause of diseases classified elsewhere; R32 Unspecified urinary incontinence; I48.91 Unspecified atrial fibrillation; E03.9 Hypothyroidism, unspecified; N81.4 Uterovaginal prolapse, unspecified; Z88.1 Allergy status to other antibiotic agents; Z79.82 Long term (current) use of aspirin; Z87.442 Personal history of urinary calculi; Z87.891 Personal history of nicotine dependence
CPT/HCPCS: 0232T; 93312; 93325; 36415; 36600; 71045; 71046; 80048; 80053; 81001; 82330; 82435; 82803; 82947; 82948; 83036; 83735; 84100; 84132; 84295; 84443; 85018; 85025; 85347; 85384; 85610; 85730; 86885; 86900; 86901; 86920; 87070; 87077; 87088; 87186; 93005; 93880; 93971; 94002; 94003; 94010; 94640; 94760; 97110; 97116; 97162; 97530; A6213; A6255; A6258; A6402; A6446; A6449; A7000; A7048; C1751; J0690; J1644; J1815; J2001; J2060; J2150; J2270; J2370; J2405; J2440; J2704; J3370; J3475; J3480; J3490; J7030; J7060; J7120; P9045; P9047